=== PATIENT | female | born 1960 | race Caucasian/White ===

== ENCOUNTER 2020-08-12 22:12 | Emergency (ER) | payer OTHER, SELFPAY ==
--- NOTE | ~2020-08-12 | XR_ITS ---
EXAMINATION: XR CHEST CLINICAL INFORMATION: Shortness of breath COMPARISON: 06/02/2019 TECHNIQUE: Frontal view of the chest was obtained. FINDINGS: Cardiac leads overlie the chest. The lungs are well expanded. There is no focal consolidation, edema, or effusion. No pneumothorax. The cardiomediastinal silhouette is within normal limits. No acute osseous abnormality. XR/XR chest 1V IMPRESSION: Clear lungs.
--- NOTE | ~2020-08-12 | CT_ITS ---
EXAMINATION: CT HEAD WITHOUT CONTRAST CLINICAL INFORMATION: Dizziness with headache COMPARISON: 11/27/2016 TECHNIQUE: Contiguous axial imaging was performed from the skull base to vertex without intravenous contrast. This CT examination was performed using dose optimization techniques as appropriate, variously including the following: * Automated exposure control * Adjustment of mA and/or kV according to patient size (this includes techniques or standardized protocols for targeted exams where dose is matched to indication/reason for exam; i.e. extremities or head) Use of iterative reconstruction technique DLP: 1060 mGy-cm. FINDINGS: Motion limits the evaluation. There is no evidence of acute intracranial hemorrhage or territorial infarction. No abnormal mass effect or midline shift is seen. [place] to white matter differentiation is well preserved. No extra-axial fluid collections are identified. No hydrocephalus. Proportional prominence of the ventricles and sulcal spaces is consistent with mild volume loss. Patchy periventricular and deep white matter hypoattenuation is consistent with mild small vessel ischemic changes. The osseous structures and soft tissues are normal. The mastoid air cells and visualized portions of the paranasal sinuses are well aerated. CT/CT head/brain wo con IMPRESSION: No acute intracranial pathology. Volume loss with small vessel ischemic change.
[2020-08-12 22:24] VITALS: BP 175/95; PULSE 85; RESP 12; TEMP 36.6; O2SAT 98; BMI 28.9
--- NOTE | 2020-08-12 22:29 | ED.CHESTPAIN ---
HPI - Chest Pain General Chief Complaint: Chest Pain Stated Complaint: Chest pain Time Seen by Provider: 08/12/20 22:28 Source: patient Mode of arrival: ambulatory Limitations: no limitations History of Present Illness HPI narrative: Patient with history of diabetes asthma hypertension no known coronary artery disease complaining of chest pain for last 2 days off and on feels like pressure lasting for 20-30 minutes without any diaphoresis. Patient also complaining of dizziness since yesterday feel everything is spinning associated with nausea also patient complaining of palpitation episodes off and on. Also complaining of headache feels head is heavy complaint: chest pain Onset (ago): day(s) (2) Timing of current episode: episodic Prior episodes: No Onset: during rest Pain location: left chest Pain radiation: none Severity: mild Quality: heaviness Relieving factors: nothing Exacerbating factors: nothing Context: recent illness Associated symptoms: palpitations Risk Factors Coronary artery disease risk factors: diabetes, hyperlipidemia and hypertension Related Data Previous Rx's Medication Instructions Recorded meclizine 12.5 mg PO TID PRN #20 tab 08/13/20 Allergies Allergy/AdvReac Type Severity Reaction Status Date / Time No Known Allergies Allergy Verified 08/12/20 22:38 [No Known Allergies*] Review of Systems Review of Systems: Constitutional : No Weight loss, No Fever, No Chills ENT/Mouth : No sore throat, No Rhinorrhea Eyes: No Eye Pain, No Swelling Cardiovascular : + Chest Pain, no palpitations Respiratory : No Cough, No Sputum, no shortness of breath Gastrointestinal : no Nausea, No Vomiting, No Diarrhea, No abdominal Pain, no black stools Genitourinary : No Dysuria, No Urinary Frequency Musculoskeletal : No joint pain, No Myalgias, No Joint Swelling Skin : No Skin Lesions, No rash Neuro : No Weakness, No Numbness, + Dizziness, No Headache Psych : No Anxiety/Panic, No Depression Heme/Lymph: No Bruising, No Lymphadenopathy Endocrine : No Polyuria, No Polydipsia All other systems reviewed and are negative [facility] Past Medical History Medical History Asthma Diabetes History of ectopic HTN (hypertension) Hyperchloremia Social History Social History Alcohol intake: never Smoking Status: Never smoker Use of substances other than those prescribed or required for medical reasons: No Advance Directives: No Physical Exam Vital Signs: Vital Signs: Last Vital Signs Temp 97.9 F 08/12/20 22:24 Pulse 79 08/13/20 01:08 Resp 18 08/13/20 01:08 BP 157/85 H 08/13/20 01:08 Pulse Ox 95 08/13/20 00:36 Body Mass Index 28.9 Appearance: Alert. Oriented X3. No acute distress. Eyes: Pupils equal, round and reactive to light. No nystagmus ENT: Pharynx normal. Neck: Normal inspection. Neck supple. CVS: Normal heart rate and rhythm. Pulses normal. Respiratory: No respiratory distress. Breath sounds normal. Abdomen: Soft and nontender. Bowel sounds are present, no mass palpable, no CVA tenderness Skin: Skin warm and dry. Normal skin color. Normal skin turgor. Extremities: No lower extremity edema. No calf tenderness Neuro: Oriented X 3. No motor deficit. No sensory deficit. Course Reevaluation(s) Reevaluation #1: Patient feeling much better now denies any chest pain dizziness has improved after meclizine patient's workup is negative for any acute ischemia patient advised to follow-up with his primary care doctor discharge her home on meclizine Time: 01:23 MDM - Chest Pain MDM Narrative Medical decision making narrative: Patient has atypical chest pain for last 2 days without any acute ischemic changes in the cardiogram history of chronic renal disease with slightly elevated high sensitive troponin at 7.7 which is not very significant patient also complaining of palpitation with chest pain and dizziness during stay in the ER compliance monitor showed normal sinus rhythm no palpitation and dizziness is from BPPV clinically as it gets worse when she moves her head CT scan of the head was negative for any acute Medical Records Data Attestation: I reviewed the patient's medical records. Lab Data Attestation: I reviewed the patient's lab results. Result diagrams: 08/12/20 23:01 08/13/20 00:43 Labs: Lab Results 08/12/20 08/12/20 08/12/20 Range/Units 22:54 23:01 23:01 WBC 7.9 (4.8-10.8) X10*3/uL RBC 4.72 (4.20-5.50) X10*6/uL Hgb 12.0 (12.0-16.0) g/dl Hct 37.8 (37-47) % MCV 80.1 (80-98) fL MCH 25.4 L (27.0-33.0) pg MCHC 31.7 (31.0-35.0) g/dl RDW 16.5 H (11.0-16.0) % Plt Count 237 (160-400) X10*3/uL MPV 11.2 (9.4-12.3) fL Immature Gran % (Auto) 0.1 (0.0-0.4) % Neut % (Auto) 60.2 (45-73) % Lymph % (Auto) 31.2 (20-40) % [place] % (Auto) 7.2 (2-11) % Eos % (Auto) 0.9 (0-4) % Baso % (Auto) 0.4 (0-2) % Lymph # (Auto) 2.5 (1.2-4.9) X10*3/uL [place] # (Auto) 0.6 (0.1-1.2) X10*3/uL Eos # (Auto) 0.1 (0.0-0.4) X10*3/uL Baso # (Auto) 0.0 (0.0-0.2) X10*3/uL Abs Immat Gran (auto) 0.01 (0.00-0.03) X10*3/uL Absolute Neuts (auto) 4.8 (2.0-8.3) X10*3/uL Absolute Nucleated RBC 0.000 (0.0-0.012) X10*3/uL Nucleated RBC % (auto) 0.0 (0.0-0.2) /100WBC PT 13.5 H (10.8-13.0) SEC INR 1.1 (0.9-1.1) Sodium (135-145) mmol/L Potassium (3.3-5.1) mmol/L Chloride (96-108) mmol/L Carbon Dioxide (22-29) mmol/L Anion Gap (12-20) BUN (9-16) mg/dL Creatinine (0.5-1.4) mg/dL Estim Creat Clear Calc Estimated GFR POC Glucose 142 H (60-115) mg/dL Random Glucose (60-115) mg/dL Calcium (8.4-10.2) mg/dL Troponin I High Sens (<3.5-17.0) ng/L B-Natriuretic Peptide (<100) pg/mL COVID-19 (NAWAF) (Negative) COVID-19 Clin Com 08/12/20 08/12/20 08/13/20 Range/Units 23:01 23:02 00:43 WBC (4.8-10.8) X10*3/uL RBC (4.20-5.50) X10*6/uL Hgb (12.0-16.0) g/dl Hct (37-47) % MCV (80-98) fL MCH (27.0-33.0) pg MCHC (31.0-35.0) g/dl RDW (11.0-16.0) % Plt Count (160-400) X10*3/uL MPV (9.4-12.3) fL Immature Gran % (Auto) (0.0-0.4) % Neut % (Auto) (45-73) % Lymph % (Auto) (20-40) % [place] % (Auto) (2-11) % Eos % (Auto) (0-4) % Baso % (Auto) (0-2) % Lymph # (Auto) (1.2-4.9) X10*3/uL [place] # (Auto) (0.1-1.2) X10*3/uL Eos # (Auto) (0.0-0.4) X10*3/uL Baso # (Auto) (0.0-0.2) X10*3/uL Abs Immat Gran (auto) (0.00-0.03) X10*3/uL Absolute Neuts (auto) (2.0-8.3) X10*3/uL Absolute Nucleated RBC (0.0-0.012) X10*3/uL Nucleated RBC % (auto) (0.0-0.2) /100WBC PT (10.8-13.0) SEC INR (0.9-1.1) Sodium 143 (135-145) mmol/L Potassium 3.4 (3.3-5.1) mmol/L Chloride 104 (96-108) mmol/L Carbon Dioxide 30 H (22-29) mmol/L Anion Gap 12 (12-20) BUN 15 (9-16) mg/dL Creatinine 1.21 (0.5-1.4) mg/dL Estim Creat Clear Calc 45.8 Estimated GFR 45 POC Glucose (60-115) mg/dL Random Glucose 145 H (60-115) mg/dL Calcium 9.5 (8.4-10.2) mg/dL Troponin I High Sens 7.7 (<3.5-17.0) ng/L B-Natriuretic Peptide < 10 (<100) pg/mL COVID-19 (NAWAF) Negative (Negative) COVID-19 Clin Com See Note ECG Data ECG #1: Attestation: I personally reviewed and interpreted this ECG as follows: Interpretation: Normal sinus rhythm heart rate 82 beats per minute normal intervals no acute ST T wave changes normal axis impression no acute ischemia Discharge Plan Discharge Clinical Impression: Chest pain Qualifiers: Chest pain type: unspecified Qualified Code(s): R07.9 - Chest pain, unspecified Benign paroxysmal positional vertigo Qualifiers: Laterality: bilateral Qualified Code(s): H81.13 - Benign paroxysmal vertigo, bilateral Patient Disposition: Home, Self-Care Instructions: Chest Pain (ED), Benign Paroxysmal Positional Vertigo (ED) Additional Instructions: Care and cautions as advised Take baby aspirin daily Take meclizine 1 tablet every 8 hours as needed for severe dizziness Follow-up with your PCP Prescriptions: New meclizine 12.5 mg tablet 12.5 mg PO TID PRN (Reason: dizziness) Qty: 20 RF: 0
--- NOTE | 2020-08-12 22:43 | ECG_ITS ---
Test Reason : cp Blood Pressure : / mmHG Vent. Rate : 082 BPM Atrial Rate : 082 BPM P-R Int : 160 ms QRS Dur : 078 ms QT Int : 402 ms P-R-T Axes : 052 023 091 degrees QTc Int : 469 ms Normal sinus rhythm Abnormal QRS-T angle, consider primary T wave abnormality Abnormal ECG No previous ECGs available Referred By: Stevie Leo Electronically Signed By:BOBBY JACKSON MD
[2020-08-12 23:01] LABS: Glucose, Whole Blood 142 mg/dL (60-115)
--- NOTE | 2020-08-12 23:03 | PC.NURSE ---
poc done at [id number]
[2020-08-12 23:08] LABS: MANUAL DIFF FLAG NO
[2020-08-12 23:09] LABS: Basophils Percent Auto 0.4 % (0-2); Eosinophils Absolute Auto 0.1 X10*3/uL (0.0-0.4); Eosinophils Percent Auto 0.9 % (0-4); Hematocrit 37.8 % (37-47); Imm Gran Abs Auto 0.01 X10*3/uL (0.00-0.03); Imm Gran Pct Auto 0.1 % (0.0-0.4); Lymphocytes Absolute Auto 2.5 X10*3/uL (1.2-4.9); Lymphocytes Percent Auto 31.2 % (20-40); Mean Corpuscular HGB Conc 31.7 g/dl (31.0-35.0); Mean Corpuscular Hemoglobin 25.4 pg (27.0-33.0); Mean Corpuscular Volume 80.1 fL (80-98); Mean Platelet Volume 11.2 fL (9.4-12.3); Monocytes Absolute Auto 0.6 X10*3/uL (0.1-1.2); Monocytes Percent Auto 7.2 % (2-11); Neutrophils Absolute Auto 4.8 X10*3/uL (2.0-8.3); Neutrophils Percent Auto 60.2 % (45-73); Platelet Count 237 X10*3/uL (160-400); Red Blood Count 4.72 X10*6/uL (4.20-5.50); Red Cell Distribution Width 16.5 % (11.0-16.0); White Blood Count 7.9 X10*3/uL (4.8-10.8)
[2020-08-12 23:28] LABS: COVID-19 Test Negative (Negative)
[2020-08-12 23:32] LABS: INTERNATIONAL NORM RATIO 1.1 (0.9-1.1); Prothrombin Time 13.5 SEC (10.8-13.0)
[2020-08-12] MEDS: Meclizine HCl 25 MG TABLET PO (23:40)
[2020-08-12 23:46] LABS: B Type Natriuretic Peptide < 10 pg/mL (<100); Troponin-I High Sensitivity 7.7 ng/L (<3.5-17.0)
[2020-08-13 00:36] VITALS: BP 167/97; PULSE 81; RESP 18; O2SAT 95
[2020-08-13 01:08] VITALS: BP 157/85; PULSE 79; RESP 18
[2020-08-13 01:14] LABS: Anion Gap 12 (12-20); Blood Urea Nitrogen 15 mg/dL (9-16); Calcium 9.5 mg/dL (8.4-10.2); Carbon Dioxide 30 mmol/L (22-29); Chloride 104 mmol/L (96-108); Creatinine Clr Calc Pharmacy 45.8; Estimated Glomerular Filt Rate 45; Glucose Random 145 mg/dL (60-115); Potassium 3.4 mmol/L (3.3-5.1); Sodium 143 mmol/L (135-145)
[2020-08-13 02:00] VITALS: BP 162/96; PULSE 89; RESP 18; O2SAT 96
== END 2020-08-13 02:24 | disposition home or self-care (01) ==
PROVIDERS: Emergency Provider Internal Medicine; PCP Internal Medicine
DX: R07.9 Chest pain, unspecified (principal); H81.13 Benign paroxysmal vertigo, bilateral; Z20.822 Contact with and (suspected) exposure to COVID-19; E11.9 Type 2 diabetes mellitus without complications; I10 Essential (primary) hypertension; E78.5 Hyperlipidemia, unspecified; J45.909 Unspecified asthma, uncomplicated; I25.10 Atherosclerotic heart disease of native coronary artery without angina pectoris
CPT/HCPCS: 36415; 70450; 71045; 80048; 82947; 83880; 84484; 85025; 85610; 87086; 87635; 93005; 99284

== ENCOUNTER 2020-08-16 05:54 | Emergency (ER) | payer OTHER, SELFPAY ==
--- NOTE | ~2020-08-16 | CT_ITS ---
EXAMINATION: CT HEAD WITHOUT CONTRAST CLINICAL INFORMATION: Headache COMPARISON: CT brain 08/12/2020 TECHNIQUE: Contiguous axial imaging was performed from the skull base to vertex without intravenous administration of contrast. This CT examination was performed using dose optimization techniques as appropriate, variously including the following: *Automated exposure control *Adjustment of mA and/or kV according to patient size (this includes techniques or standardized protocols for targeted exams where dose is matched to indication/reason for exam; i.e. extremities or head) *Use of iterative reconstruction technique DLP: 639 mGy-cm FINDINGS: There is no evidence of acute intracranial hemorrhage or territorial infarction. No abnormal mass effect or midline shift is seen. Gal[place] to white matter differentiation is well preserved. No extra-axial fluid collections are identified. The lateral ventricles are symmetrical but enlarged mild periarticular hypodensity seen in both cerebral hemispheres without mass effect. There is no abnormal attenuation within the brain parenchyma. The osseous structures and soft tissues are normal. The mastoid air cells and visualized portions of the paranasal sinuses are well aerated. CT/CT head/brain wo con IMPRESSION: No acute intracranial process seen. Moderate cerebral volume loss with chronic small vessel ischemic changes in both cerebral hemispheres.
[2020-08-16 07:15] VITALS: BP 145/88; PULSE 78; RESP 18; TEMP 36.3; O2SAT 98; BMI 27.4
--- NOTE | 2020-08-16 07:16 | ECG_ITS ---
Test Reason : HEADACHE Blood Pressure : / mmHG Vent. Rate : 069 BPM Atrial Rate : 069 BPM P-R Int : 152 ms QRS Dur : 076 ms QT Int : 420 ms P-R-T Axes : 058 048 080 degrees QTc Int : 450 ms Normal sinus rhythm Nonspecific ST and T wave abnormality in lateral leads Borderline EKG When compared with ECG of 12-AUG-2020 22:34, No significant change was found Referred By: Lakeisha Hankins Electronically Signed By:PRUDENCE FAROOQ
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
[2020-08-16 07:29] VITALS: BP 132/55; PULSE 72
[2020-08-16] MEDS: LORazepam 1 MG TABLET PO (07:29)
[2020-08-16 09:02] VITALS: BP 111/63; PULSE 76; RESP 16
[2020-08-16 09:27] LABS: MANUAL DIFF FLAG NO
[2020-08-16 09:29] LABS: Basophils Percent Auto 0.5 % (0-2); Eosinophils Absolute Auto 0.1 X10*3/uL (0.0-0.4); Eosinophils Percent Auto 1.2 % (0-4); Hematocrit 34.8 % (37-47); Hemoglobin 10.8 g/dl (12.0-16.0); Imm Gran Abs Auto 0.02 X10*3/uL (0.00-0.03); Imm Gran Pct Auto 0.3 % (0.0-0.4); Lymphocytes Absolute Auto 1.9 X10*3/uL (1.2-4.9); Lymphocytes Percent Auto 32.4 % (20-40); Mean Corpuscular Hemoglobin 25.2 pg (27.0-33.0); Mean Corpuscular Volume 81.1 fL (80-98); Monocytes Absolute Auto 0.5 X10*3/uL (0.1-1.2); Monocytes Percent Auto 7.8 % (2-11); Neutrophils Absolute Auto 3.3 X10*3/uL (2.0-8.3); Neutrophils Percent Auto 57.8 % (45-73); Platelet Count 186 X10*3/uL (160-400); Red Blood Count 4.29 X10*6/uL (4.20-5.50); Red Cell Distribution Width 16.2 % (11.0-16.0); White Blood Count 5.8 X10*3/uL (4.8-10.8)
[2020-08-16 09:40] VITALS: BP 102/56; PULSE 72
[2020-08-16 10:02] LABS: Anion Gap 11 (12-20); Blood Urea Nitrogen 15 mg/dL (9-16); Calcium 8.7 mg/dL (8.4-10.2); Carbon Dioxide 28 mmol/L (22-29); Chloride 104 mmol/L (96-108); Creatinine Clr Calc Pharmacy 39.7; Estimated Glomerular Filt Rate 40; Glucose Random 237 mg/dL (60-115); Potassium 4.1 mmol/L (3.3-5.1); Sodium 139 mmol/L (135-145)
== END 2020-08-16 11:33 | disposition home or self-care (01) ==
PROVIDERS: Emergency Provider Emergency Medicine; PCP Internal Medicine
DX: G44.209 Tension-type headache, unspecified, not intractable (principal); F41.9 Anxiety disorder, unspecified; E11.9 Type 2 diabetes mellitus without complications; I10 Essential (primary) hypertension; J45.909 Unspecified asthma, uncomplicated
CPT/HCPCS: 36415; 70450; 80048; 85025; 93005; 99284

== ENCOUNTER 2021-11-30 13:55 | Outpatient (REF) | payer MEDICARE, MEDICAID, SELFPAY ==
[2021-11-30 14:21] LABS: COVID-19 Test Positive (Negative)
== END 2021-11-30 13:56 | disposition home or self-care (01) ==
LOC: HO.LAB 13:55
PROVIDERS: Visit Provider Internal Medicine
DX: Z20.822 Contact with and (suspected) exposure to COVID-19 (principal)
CPT/HCPCS: 87635; C9803

== ENCOUNTER 2023-09-20 12:34 | Emergency (ER) | payer MEDICARE, SELFPAY ==
--- NOTE | ~2023-09-20 | CT_ITS ---
EXAMINATION: CT HEAD WITHOUT CONTRAST CLINICAL INFORMATION: Mental status change COMPARISON: CT head August 16, 2020 TECHNIQUE: Contiguous axial imaging was performed from the skull base to vertex without intravenous administration of contrast. Coronal and sagittal reformatted images are performed at the CT scanner. [This CT examination was performed using dose optimization techniques as appropriate, variously including the following: *Automated exposure control *Adjustment of mA and/or kV according to patient size (this includes techniques or standardized protocols for targeted exams where dose is matched to indication/reason for exam; i.e. extremities or head) *Use of iterative reconstruction technique] DLP: 609 mGy-cm. FINDINGS: There is no evidence of acute intracranial hemorrhage or territorial infarction. No abnormal mass-effect or midline shift is seen. [place] to white matter differentiation is well preserved. No extra-axial fluid collections are identified. There is generalized global volume loss. There is moderate prominence of the ventricles and the sulci . There is moderate hypodensity of the periventricular white matter due to chronic small vessel ischemic disease. There are vascular calcifications of the internal carotid arteries bilaterally. There is no osseous abnormality. The mastoid air cells and visualized portions of the paranasal sinuses are well-aerated. CT/CT head/brain wo IV con IMPRESSION: No acute intracranial pathology.
[2023-09-20 12:50] VITALS: PULSE 90; RESP 18; TEMP 36.3; O2SAT 99; BMI 27.4
--- NOTE | 2023-09-20 12:50 | ED_ITS ---
HPI - General Adult General Chief complaint: General Medical Stated complaint: high bs Time Seen by Provider: 09/20/23 15:13 Source: patient, family and old records reviewed Mode of arrival: ambulatory Limitations: no limitations History of Present Illness HPI narrative: 63 yo female with PMH of HLD, HTN, asthma, IDDM, recent [address] s/p hydrocephalus with drainage per and seizures now on diamox 250mg daily and keppra 500mg BID. Has been taking insulin as prescribed. She is better than she has been in [place] but family notes they brought her here 4 days ago and she has no PCP and they have no way of filling Rx. They were worried as her blood sugar was 471 today. MD complaint: hyperglycemia Onset (ago): day(s) (1) Severity: mild Relieving factors: none Exacerbating factors: none Associated symptoms: nausea/vomiting Treatments prior to arrival: none Related Data Previous Rx's ?Medication ?Instructions ?Recorded meclizine 12.5 mg tablet 12.5 mg PO TID PRN dizziness #20 08/13/20 tabs lorazepam 1 mg tablet (Ativan) 1 mg PO BEDTIME PRN sleep #5 tabs 08/16/20 acetazolamide 250 mg tablet 250 mg PO DAILY #30 tabs 09/20/23 atorvastatin 40 mg tablet 40 mg PO DAILY #30 tabs 09/20/23 cefuroxime axetil 250 mg tablet 250 mg PO BID 7 days #14 tabs 09/20/23 docusate sodium 100 mg capsule 100 mg PO BID PRN constipation #60 09/20/23 (Colace) caps insulin glargine 100 unit/mL (3 35 unit (0.35 mL) subcut QPM #15 mL 09/20/23 mL) subcutaneous pen (Lantus Solostar U-100 Insulin) insulin lispro 100 unit/mL 8 unit (0.08 mL) subcut QAM #15 mL 09/20/23 subcutaneous pen levetiracetam 500 mg tablet 500 mg PO BID #60 tabs 09/20/23 (Keppra) Allergies Allergy/AdvReac Type Severity Reaction Status Date / Time No Known Allergies Allergy Verified 09/20/23 12:52 [No Known Allergies*] Review of Systems 2 Review of Systems: Constitutional : No Fever, No Chills, No Fatigue ENT/Mouth : No sore throat, No Rhinorrhea Eyes: No Eye Pain, No Swelling, No Redness Cardiovascular : No Chest Pain, No SOB, No Dyspnea on Exertion Respiratory : No Cough, No Sputum Gastrointestinal : pos Nausea, No Vomiting, No Diarrhea, No abdominal Pain Genitourinary : No Dysuria, No Urinary Frequency, No Hematuria, Musculoskeletal : No joint pain, No Myalgias, No Joint Swelling Skin : No Skin Lesions, No rash Neuro : No Weakness, No Numbness, No Dizziness, no Headache Psych : No Anxiety/Panic, No Depression All other systems reviewed and are negative [facility] Past Medical History Attestation statement: The following information was validated with the patient. Source: old records reviewed and obtained from family Medical History Hydrocephalus Seizures History of ectopic Diabetes Hyperchloremia HTN (hypertension) Asthma Social History Social History (Updated 09/20/23 @ 15:33 by Shala Hankins DO) Alcohol intake: never Patient Tobacco Use Status: Never used Tobacco Smoked in Last 30 Days: No Use of substances other than those prescribed or required for medical reasons: No Advance Directives: No Advance Directives Information Provided: No Patient : No Physical Exam ED Vital Signs: Vital Signs - 24 hr 09/20/23 12:50 09/20/23 17:43 Temperature 97.3 F 98.1 F Pulse Rate 90 101 H Respiratory Rate 18 18 Blood Pressure 121/74 Pulse Oximetry 99 99 Oxygen Delivery Method Room Air Room Air BMI result Body Mass Index 27.4 Appearance: Alert. Oriented X2 (at baseline). No acute distress. Eyes: Pupils equal, round and reactive to light. ENT: Pharynx normal. Neck: Normal inspection. Neck supple. CVS: Normal heart rate and rhythm. Pulses normal. Respiratory: No respiratory distress. Breath sounds normal. Abdomen: Soft and nontender. Skin: Skin warm and dry. Normal skin color. Normal skin turgor. Extremities: No lower extremity edema. No calf ttp Neuro: Oriented X 2 (at baseline). No motor deficit. No sensory deficit. Course Course Course Narrative: RME:?63 yo female hx of diabetes, asthma, HTN here for eval of hyperglycemia. Admits BS was 500 at clinic this morning. states she came home from [place] 2 days ago after having to leave early due to thyroid issues . she currently takes medications for her thyroid, HTN, and DM however cannot recall the names. she states she takes these as prescribed. admits to nausea without vomiting. denies fever, chills, vision changes, abd pain. labs, poc glucose, UA ordered. Full HPI, ROS and PE to be performed by the primary ED provider. Reevaluation(s) Reevaluation #1: blood sugar trending up due to patient was drinking juice while walking into the ED Medications Administered Discontinued Medications Generic Name Dose Route Start Last Admin Trade Name [place] PRN Reason Stop Dose Admin Insulin Human Lispro 5 unit 09/20/23 15:25 09/20/23 16:15 Insulin Lispro 100 Unit/Ml 3 Ml Vial SUBCUT 09/20/23 15:26 5 unit ONCE ONE Administration Medical Decision Making Medical Decision Making [facility] Narrative: 63 yo female with PMH of HLD, HTN, asthma, IDDM, recent [address] s/p hydrocephalus with drainage per and seizures now on diamox 250mg daily and keppra 500mg BID here with elevated BS and now with c/o mild nausea but other than elevated BS she denies any complaints. The history is hard to follow at this time will obtain labs, UA, suspect VBG is due to diamox use - will obtain CT head to rule out hydrocephalus reaacumulating given nausea. EKG, insulin ordered. Differential Diagnosis Differential Diagnoses: The differential diagnosis associated with the presentation includes hyperglycemia, hydrocephalus Admission/Observation Consideration of admission/observation: Escalation of care including admission/observation considered + UA but no signs of sepsis start on ceftin. at baseline other than elevated blood sugar there is no acute findings can be DC home did ask if feels comfortable taking her home and he states he does and declines rehab or placement Lab Data [facility] Lab Attestation statement: I reviewed the patient's lab results. not in DKA suspect ph is due to diamox no gennaro neg beta hydroxy 09/20/23 13:06 09/20/23 13:06 Labs: Lab Results 09/20/23 09/20/23 09/20/23 Range/Units 13:06 13:08 13:44 WBC 6.2 (4.8-10.8) X10*3/uL RBC 4.66 (4.20-5.50) X10*6/uL Hgb 12.9 (12.0-16.0) g/dl Hct 39.1 (37.0-47.0) % MCV 83.9 (80.0-98.0) fL MCH 27.7 (27.0-33.0) pg MCHC 33.0 (31.0-35.0) g/dl RDW 14.8 (11.0-16.0) % Plt Count 283 (160-400) X10*3/uL MPV 10.9 (9.4-12.3) fL Immature Gran % (Auto) 0.5 H (0.0-0.4) % Neut % (Auto) 64.4 (45-73) % Lymph % (Auto) 25.1 (20-40) % [place] % (Auto) 7.1 (2-11) % Eos % (Auto) 2.3 (0-4) % Baso % (Auto) 0.6 (0-2) % Lymph # (Auto) 1.6 (1.2-4.9) X10*3/uL [place] # (Auto) 0.4 (0.1-1.2) X10*3/uL Eos # (Auto) 0.1 (0.0-0.4) X10*3/uL Baso # (Auto) 0.0 (0.0-0.2) X10*3/uL Abs Immat Gran (auto) 0.03 (0.00-0.03) X10*3/uL Absolute Neuts (auto) 4.0 (2.0-8.3) x10*3/uL Absolute Nucleated RBC 0.000 (0.0-0.012) X10*3/uL Nucleated RBC % (auto) 0.0 (0.0-0.2) /100WBC VBG pH (7.32-7.43) VBG pCO2 mmHg VBG pO2 mmHg VBG HCO3 (22-26) mmol/L VBG O2 Saturation % VBG Base Excess mmol/L Sodium 139 (135-145) mmol/L Potassium 3.4 (3.3-5.1) mmol/L Chloride 111 H (96-108) mmol/L Carbon Dioxide 23 (22-29) mmol/L Anion Gap 8 L (12-20) BUN 23 H (9-16) mg/dL Creatinine 1.33 (0.5-1.4) mg/dL Estim Creat Clear Calc 39.1 Estimated GFR 40 POC Glucose 321 H (60-115) mg/dL Random Glucose 376 H* (60-115) mg/dL Osmolality (281-305) mosm/kg Calcium 9.8 D (8.4-10.2) mg/dL Magnesium 2.1 (1.6-2.6) mg/dL Total Bilirubin 0.3 (0.0-1.0) mg/dL AST 13 (5-31) U/L ALT 25 (0-31) U/L Alkaline Phosphatase 126 H (39-117) U/L Total Protein 7.8 (6.5-8.0) g/dL Albumin 4.3 (3.5-5.0) g/dL Lipase 88 H (8-78) U/L Beta-Hydroxybutyrate 0.00 L (0.02-0.27) mmol/L TSH (0.32-4.0) uIU/mL Urine Color Urine Appearance Urine pH (5.0-9.0) Ur Specific [place] (1.005-1.025) Urine Protein (Neg-Trace) mg/dL Urine Glucose (UA) (Negative) mg/dL Urine Ketones (Negative) mg/dL Urine Blood (Negative) Urine Nitrite (Negative) Ur Leukocyte Esterase (Negative) Urine RBC (0-2) /HPF Urine WBC (0-5) /HPF Ur Squamous Epith Cells (0-2) /HPF Urine Bacteria (None Seen) Hyaline Casts (0-2) /LPF Influenza Type A (PCR) NEGATIVE (Negative) Influenza Type B (PCR) NEGATIVE (Negative) RSV RNA Qual (PCR) NEGATIVE (Negative) SARS-CoV-2 RNA (RT-PCR) NEGATIVE (Negative) 09/20/23 09/20/23 09/20/23 Range/Units 14:55 15:46 15:47 WBC (4.8-10.8) X10*3/uL RBC (4.20-5.50) X10*6/uL Hgb (12.0-16.0) g/dl Hct (37.0-47.0) % MCV (80.0-98.0) fL MCH (27.0-33.0) pg MCHC (31.0-35.0) g/dl RDW (11.0-16.0) % Plt Count (160-400) X10*3/uL MPV (9.4-12.3) fL Immature Gran % (Auto) (0.0-0.4) % Neut % (Auto) (45-73) % Lymph % (Auto) (20-40) % [place] % (Auto) (2-11) % Eos % (Auto) (0-4) % Baso % (Auto) (0-2) % Lymph # (Auto) (1.2-4.9) X10*3/uL [place] # (Auto) (0.1-1.2) X10*3/uL Eos # (Auto) (0.0-0.4) X10*3/uL Baso # (Auto) (0.0-0.2) X10*3/uL Abs Immat Gran (auto) (0.00-0.03) X10*3/uL Absolute Neuts (auto) (2.0-8.3) x10*3/uL Absolute Nucleated RBC (0.0-0.012) X10*3/uL Nucleated RBC % (auto) (0.0-0.2) /100WBC VBG pH 7.28 L 7.29 L (7.32-7.43) VBG pCO2 42 40 mmHg VBG pO2 37 45 mmHg VBG HCO3 20 L 19 L (22-26) mmol/L VBG O2 Saturation 59.0 73.0 % VBG Base Excess -6.1 -6.3 mmol/L Sodium (135-145) mmol/L Potassium (3.3-5.1) mmol/L Chloride (96-108) mmol/L Carbon Dioxide (22-29) mmol/L Anion Gap (12-20) BUN (9-16) mg/dL Creatinine (0.5-1.4) mg/dL Estim Creat Clear Calc Estimated GFR POC Glucose (60-115) mg/dL Random Glucose (60-115) mg/dL Osmolality 318 H (281-305) mosm/kg Calcium (8.4-10.2) mg/dL Magnesium (1.6-2.6) mg/dL Total Bilirubin (0.0-1.0) mg/dL AST (5-31) U/L ALT (0-31) U/L Alkaline Phosphatase (39-117) U/L Total Protein (6.5-8.0) g/dL Albumin (3.5-5.0) g/dL Lipase (8-78) U/L Beta-Hydroxybutyrate (0.02-0.27) mmol/L TSH 0.85 (0.32-4.0) uIU/mL Urine Color Urine Appearance Urine pH (5.0-9.0) Ur Specific [place] (1.005-1.025) Urine Protein (Neg-Trace) mg/dL Urine Glucose (UA) (Negative) mg/dL Urine Ketones (Negative) mg/dL Urine Blood (Negative) Urine Nitrite (Negative) Ur Leukocyte Esterase (Negative) Urine RBC (0-2) /HPF Urine WBC (0-5) /HPF Ur Squamous Epith Cells (0-2) /HPF Urine Bacteria (None Seen) Hyaline Casts (0-2) /LPF Influenza Type A (PCR) (Negative) Influenza Type B (PCR) (Negative) RSV RNA Qual (PCR) (Negative) SARS-CoV-2 RNA (RT-PCR) (Negative) 09/20/23 09/20/23 09/20/23 Range/Units 17:19 17:37 17:52 WBC (4.8-10.8) X10*3/uL RBC (4.20-5.50) X10*6/uL Hgb (12.0-16.0) g/dl Hct (37.0-47.0) % MCV (80.0-98.0) fL MCH (27.0-33.0) pg MCHC (31.0-35.0) g/dl RDW (11.0-16.0) % Plt Count (160-400) X10*3/uL MPV (9.4-12.3) fL Immature Gran % (Auto) (0.0-0.4) % Neut % (Auto) (45-73) % Lymph % (Auto) (20-40) % [place] % (Auto) (2-11) % Eos % (Auto) (0-4) % Baso % (Auto) (0-2) % Lymph # (Auto) (1.2-4.9) X10*3/uL [place] # (Auto) (0.1-1.2) X10*3/uL Eos # (Auto) (0.0-0.4) X10*3/uL Baso # (Auto) (0.0-0.2) X10*3/uL Abs Immat Gran (auto) (0.00-0.03) X10*3/uL Absolute Neuts (auto) (2.0-8.3) x10*3/uL Absolute Nucleated RBC (0.0-0.012) X10*3/uL Nucleated RBC % (auto) (0.0-0.2) /100WBC VBG pH (7.32-7.43) VBG pCO2 mmHg VBG pO2 mmHg VBG HCO3 (22-26) mmol/L VBG O2 Saturation % VBG Base Excess mmol/L Sodium (135-145) mmol/L Potassium (3.3-5.1) mmol/L Chloride (96-108) mmol/L Carbon Dioxide (22-29) mmol/L Anion Gap (12-20) BUN (9-16) mg/dL Creatinine (0.5-1.4) mg/dL Estim Creat Clear Calc Estimated GFR POC Glucose 469 H* 451 H* (60-115) mg/dL Random Glucose (60-115) mg/dL Osmolality (281-305) mosm/kg Calcium (8.4-10.2) mg/dL Magnesium (1.6-2.6) mg/dL Total Bilirubin (0.0-1.0) mg/dL AST (5-31) U/L ALT (0-31) U/L Alkaline Phosphatase (39-117) U/L Total Protein (6.5-8.0) g/dL Albumin (3.5-5.0) g/dL Lipase (8-78) U/L Beta-Hydroxybutyrate (0.02-0.27) mmol/L TSH (0.32-4.0) uIU/mL Urine Color Yellow Urine Appearance Cloudy Urine pH 7.0 (5.0-9.0) Ur Specific [place] 1.020 (1.005-1.025) Urine Protein 30 (1+) H (Neg-Trace) mg/dL Urine Glucose (UA) >=1000 H (Negative) mg/dL Urine Ketones Negative (Negative) mg/dL Urine Blood Negative (Negative) Urine Nitrite Negative (Negative) Ur Leukocyte Esterase Small (1+) H (Negative) Urine RBC 0-2 (0-2) /HPF Urine WBC >50 H (0-5) /HPF Ur Squamous Epith Cells 0-2 (0-2) /HPF Urine Bacteria 4+ (None Seen) Hyaline Casts 0-2 (0-2) /LPF Influenza Type A (PCR) (Negative) Influenza Type B (PCR) (Negative) RSV RNA Qual (PCR) (Negative) SARS-CoV-2 RNA (RT-PCR) (Negative) Independent Interpretation I performed an independent interpretation of an: EKG and CT Scan (no acute findings) Interpretation: Rate: 93 Rhythm: NSR [place]: normal Normal P waves. Normal CRISTOPHER. Normal QRS complex. ST T wave : normal no MIKAEL qTC: 460 prior studies: no acute ischemia The study has been interpreted contemporaneously by me. . Radiology Impression Discussion of test interpretation with radiology: I have reviewed the radiologist's reading. Independent Historian Clinical information obtained from an independent historian. History obtained from or confirmed by: Spouse External Record Review External record reviewed: Outpatient record Prescription Management I considered prescription management with: Antibiotic and Other Discharge Plan Discharge Clinical Impression: Acute hyperglycemia, Acute UTI, Medicine refill Patient Disposition: Home, Self-Care Instructions: Urinary Tract Infection in Women (ED), Diabetic Hyperglycemia (ED), Medicine Refill (ED) Additional Instructions: [facility] call to make appointment [phone] return for any worsening symptoms or concerns Prescriptions: New levetiracetam [Keppra] 500 mg tablet 500 mg PO BID Qty: 60 1RF acetazolamide 250 mg tablet 250 mg PO DAILY Qty: 30 0RF atorvastatin 40 mg tablet 40 mg PO DAILY Qty: 30 1RF docusate sodium [Colace] 100 mg capsule 100 mg PO BID PRN (Reason: constipation) Qty: 60 1RF insulin glargine [Lantus Solostar U-100 Insulin] 100 unit/mL (3 mL) insulin pen 35 unit subcut QPM Qty: 15 1RF insulin lispro 100 unit/mL insulin pen 8 unit subcut QAM Qty: 15 1RF cefuroxime axetil 250 mg tablet 250 mg PO BID 7 Days Qty: 14 0RF No Action meclizine 12.5 mg tablet 12.5 mg PO TID PRN (Reason: dizziness) Qty: 20 0RF lorazepam [Ativan] 1 mg tablet 1 mg PO BEDTIME PRN (Reason: sleep) Qty: 5 0RF Print Language: Tristanian
[2023-09-20 13:11] LABS: Glucose, Whole Blood 321 mg/dL (60-115)
[2023-09-20 13:17] LABS: MANUAL DIFF FLAG NO
[2023-09-20 13:18] LABS: Basophils Percent Auto 0.6 % (0-2); Eosinophils Absolute Auto 0.1 X10*3/uL (0.0-0.4); Eosinophils Percent Auto 2.3 % (0-4); Hematocrit 39.1 % (37.0-47.0); Hemoglobin 12.9 g/dl (12.0-16.0); Imm Gran Abs Auto 0.03 X10*3/uL (0.00-0.03); Imm Gran Pct Auto 0.5 % (0.0-0.4); Lymphocytes Absolute Auto 1.6 X10*3/uL (1.2-4.9); Lymphocytes Percent Auto 25.1 % (20-40); Mean Corpuscular Hemoglobin 27.7 pg (27.0-33.0); Mean Corpuscular Volume 83.9 fL (80.0-98.0); Mean Platelet Volume 10.9 fL (9.4-12.3); Monocytes Absolute Auto 0.4 X10*3/uL (0.1-1.2); Monocytes Percent Auto 7.1 % (2-11); Neutrophils Percent Auto 64.4 % (45-73); Platelet Count 283 X10*3/uL (160-400); Red Blood Count 4.66 X10*6/uL (4.20-5.50); Red Cell Distribution Width 14.8 % (11.0-16.0); White Blood Count 6.2 X10*3/uL (4.8-10.8)
[2023-09-20 13:37] LABS: Alanine Aminotransferase 25 U/L (0-31); Albumin Level 4.3 g/dL (3.5-5.0); Alkaline Phosphatase 126 U/L (39-117); Anion Gap 8 (12-20); Aspartate Amino Transferase 13 U/L (5-31); Bilirubin Total 0.3 mg/dL (0.0-1.0); Blood Urea Nitrogen 23 mg/dL (9-16); Calcium 9.8 mg/dL (8.4-10.2); Carbon Dioxide 23 mmol/L (22-29); Chloride 111 mmol/L (96-108); Creatinine Clr Calc Pharmacy 39.1; Estimated Glomerular Filt Rate 40; Lipase 88 U/L (8-78); Magnesium 2.1 mg/dL (1.6-2.6); Potassium 3.4 mmol/L (3.3-5.1); Sodium 139 mmol/L (135-145); Total Protein 7.8 g/dL (6.5-8.0)
[2023-09-20 13:38] LABS: Glucose Random 376 mg/dL (60-115)
[2023-09-20 14:25] LABS: Influenza A PCR NEGATIVE (Negative); Influenza B PCR NEGATIVE (Negative); Resp Syncy Virus RNA Qual PCR NEGATIVE (Negative); SARS COV2 PCR INHOUSE NEGATIVE (Negative)
[2023-09-20 15:02] LABS: Venous Blood Gas Refer to POC result
[2023-09-20 15:04] LABS: VBG Base Excess -6.1 mmol/L; VBG HCO3 20 mmol/L (22-26); VBG pCO2 42 mmHg; VBG pH 7.28 (7.32-7.43); VBG pO2 37 mmHg
--- NOTE | 2023-09-20 15:15 | PC.NURSE ---
While bringing patient back to the department- pt was drinking orange juice- instructed patient not to eat/drink
[2023-09-20 15:19] LABS: Osmolality, Serum 318 mosm/kg (281-305)
--- NOTE | 2023-09-20 15:38 | ECG_ITS ---
Test Reason : weakness Blood Pressure : / mmHG Vent. Rate : 093 BPM Atrial Rate : 093 BPM P-R Int : 164 ms QRS Dur : 080 ms QT Int : 370 ms P-R-T Axes : 052 027 059 degrees QTc Int : 460 ms Normal sinus rhythm Normal ECG When compared with ECG of 16-AUG-2020 09:00, No significant change was found Referred By: Shala Hankins Electronically Signed By:BOBBY JACKSON MD
[2023-09-20 15:55] LABS: VBG Base Excess -6.3 mmol/L; VBG HCO3 19 mmol/L (22-26); VBG pCO2 40 mmHg; VBG pH 7.29 (7.32-7.43); VBG pO2 45 mmHg
[2023-09-20 15:56] LABS: Venous Blood Gas Refer to POC result
[2023-09-20] MEDS: Insulin Lispro 100 UNIT/ML 3 ML VIAL SUBCUT (16:15)
[2023-09-20 16:27] LABS: TSH reflex Free T4 0.85 uIU/mL (0.32-4.0)
[2023-09-20 17:30] LABS: Appearance Urine Cloudy; Color Urine Yellow; Glucose Urine UA >=1000 mg/dL (Negative); Leukocyte Esterase Urine Small (1+) (Negative); Nitrite Urine Negative (Negative); UMIC TRIGGER UACC YES; Urine Blood Negative (Negative); Urine Ketones Negative (Negative); Urine Protein 30 (1+) mg/dL (Neg-Trace)
[2023-09-20 17:32] LABS: Bacteria Urine 4+ (None Seen); Hyaline Casts Urine 0-2 /LPF (0-2); RBC Urine 0-2 /HPF (0-2); Squamous Epithelial Cell Urine 0-2 /HPF (0-2); UACC Culture Trigger YES; WBC Urine >50 /HPF (0-5)
[2023-09-20 17:43] VITALS: BP 121/74; PULSE 101; RESP 18; TEMP 36.7; O2SAT 99
[2023-09-20 17:44] LABS: Glucose, Whole Blood 469 mg/dL (60-115)
[2023-09-20 17:56] LABS: Glucose, Whole Blood 451 mg/dL (60-115)
[2023-09-20] MEDS: Insulin Lispro 100 UNIT/ML 3 ML VIAL 8 UNIT SUBCUT (18:17)
[2023-09-20] MEDS: cefuroxime axetiL 250 MG TABLET PO (18:17)
[2023-09-20 19:07] LABS: Glucose, Whole Blood 395 mg/dL (60-115)
[2023-09-20 19:28] VITALS: BP 132/89; PULSE 99; RESP 17; TEMP 36.7; O2SAT 100
== END 2023-09-20 19:30 | disposition home or self-care (01) ==
PROVIDERS: Physician Assistant Medical; Emergency Provider Emergency Medicine
DX: E11.65 Type 2 diabetes mellitus with hyperglycemia (principal); N39.0 Urinary tract infection, site not specified; R11.2 Nausea with vomiting, unspecified; R41.82 Altered mental status, unspecified; Z03.818 Encounter for observation for suspected exposure to other biological agents ruled out; Z79.4 Long term (current) use of insulin; Z79.899 Other long term (current) drug therapy
CPT/HCPCS: 0241U; 36415; 70450; 80053; 81001; 82010; 82803; 82947; 83690; 83735; 83930; 84443; 85025; 87086; 93005; 99284

== ENCOUNTER → 2023-09-20 15:38 | Outpatient (BNV) | payer MEDICARE, SELFPAY | PROVIDERS: Emergency Provider Emergency Medicine; Visit Provider Internal Medicine Cardiovascular Disease | DX: R53.1 Weakness (principal) | CPT/HCPCS: 93010 ==

== ENCOUNTER 2023-09-21 18:49 | Emergency (ER) | payer MEDICARE, MEDICAID, SELFPAY ==
--- NOTE | 2023-09-21 18:56 | ED.GENADULT ---
HPI - General Adult General Chief complaint: Recheck/Abnormal Lab/Rx Stated complaint: hyperglycemia *BGL 472 ,hx diabetes Time Seen by Provider: 09/21/23 18:51 Source: patient, family, EMS and old records reviewed Mode of arrival: EMS Limitations: altered mental status (poor historian mildly confused at baseline) History of Present Illness HPI narrative: 63 yo female with PMH of HLD, HTN, asthma, IDDM, recent [address] s/p hydrocephalus with drainage per and seizures now on diamox 250mg daily and keppra 500mg BID who I saw yesterday and prescribed 8 units of lispro as asked and on Rx package confirmed by marketing research intern as well as 35 units lantus confirmed by marketing research intern. Family calls EMS again today after BS in 400s and they note her lispro is not right. Patient has no complaints. She was sent home with 250mg BID ceftin for UTI MD complaint: hyperglycemia Onset (ago): day(s) (2) Radiation: non-radiation Severity: mild Relieving factors: none Exacerbating factors: eating Associated symptoms: denies other symptoms Treatments prior to arrival: none Related Data Previous Rx's ?Medication ?Instructions ?Recorded meclizine 12.5 mg tablet 12.5 mg PO TID PRN dizziness #20 08/13/20 tabs lorazepam 1 mg tablet (Ativan) 1 mg PO BEDTIME PRN sleep #5 tabs 08/16/20 acetazolamide 250 mg tablet 250 mg PO DAILY #30 tabs 09/20/23 atorvastatin 40 mg tablet 40 mg PO DAILY #30 tabs 09/20/23 cefuroxime axetil 250 mg tablet 250 mg PO BID 7 days #14 tabs 09/20/23 docusate sodium 100 mg capsule 100 mg PO BID PRN constipation #60 09/20/23 (Colace) caps insulin glargine 100 unit/mL (3 35 unit (0.35 mL) subcut QPM #15 mL 09/20/23 mL) subcutaneous pen (Lantus Solostar U-100 Insulin) insulin lispro 100 unit/mL 8 unit (0.08 mL) subcut QAM #15 mL 09/20/23 subcutaneous pen levetiracetam 500 mg tablet 500 mg PO BID #60 tabs 09/20/23 (Keppra) Allergies Allergy/AdvReac Type Severity Reaction Status Date / Time No Known Allergies Allergy Verified 09/21/23 18:59 [No Known Allergies*] Review of Systems Review of Systems: ROS unable to be obtained due to poor historian PMFSH Past Medical History Attestation statement: The following information was validated with the patient. Source: old records reviewed Medical History Hydrocephalus Seizures History of ectopic Diabetes Hyperchloremia HTN (hypertension) Asthma Social History Social History Alcohol intake: never Patient Tobacco Use Status: Never used Tobacco Advance Directives: No Advance Directives Information Provided: No Physical Exam ED Vital Signs: Vital Signs - 24 hr 09/21/23 18:57 Temperature 98.2 F Pulse Rate 92 Respiratory Rate 16 Blood Pressure 124/82 Pulse Oximetry 95 Oxygen Delivery Method Room Air BMI result Body Mass Index 25.8 Appearance: Alert. Oriented X2. No acute distress. Eyes: Pupils equal, round and reactive to light. ENT: Pharynx normal. Neck: Normal inspection. Neck supple. CVS: Normal heart rate and rhythm. Pulses normal. Respiratory: No respiratory distress. Breath sounds normal. Abdomen: Soft and nontender. Skin: Skin warm and dry. Normal skin color. Normal skin turgor. Extremities: No lower extremity edema. No calf ttp Neuro: Oriented X 2. No motor deficit. No sensory deficit. Medications Administered Discontinued Medications Generic Name Dose Route Start Last Admin Trade Name Freq PRN Reason Stop Dose Admin Sodium Chloride 1,000 mls @ 999 mls/hr 09/21/23 20:00 09/21/23 20:10 Ns IV 09/21/23 21:00 999 mls/hr .Q1H1M [facility] Administration Insulin Human Regular 7 unit 09/21/23 18:51 09/21/23 19:10 Insulin Regular, Human 100 Unit/Ml 3 Ml Vial IVPUSH 09/21/23 18:52 7 unit ONCE ONE Administration Medical Decision Making Medical Decision Making MDM Narrative: 63 yo female with PMH of HLD, HTN, asthma, IDDM, recent [address] s/p hydrocephalus with drainage per and seizures now on diamox 250mg daily and keppra 500mg BID here with c/o hyperglycemia at home - yesterday prescribed what she was taking CT now family states that it is wrong. Will need to touch base with them. She was also drinking OJ yesterday while we were trying to get her blood sugar down so there is an education issue. They declined inpatient services or help as well and wanted to take her home yesterday. Differential Diagnosis Differential Diagnoses: The differential diagnosis associated with the presentation includes poor diet compliance, lack of medications, insulin resistance Admission/Observation Consideration of admission/observation: Escalation of care including admission/observation considered blood sugar improved stable for DC start on 8 units at lunch will go over it with marketing research intern Consult Healthcare Provider Management of the patient was discussed with: [facility] Scout Lab Data MDM Lab Attestation statement: I reviewed the patient's lab results. 09/21/23 19:35 09/21/23 19:35 Labs: Lab Results 09/21/23 09/21/23 Range/Units 18:58 19:35 WBC 5.6 (4.8-10.8) X10*3/uL RBC 4.61 (4.20-5.50) X10*6/uL Hgb 12.9 (12.0-16.0) g/dl Hct 38.1 (37.0-47.0) % MCV 82.6 (80.0-98.0) fL MCH 28.0 (27.0-33.0) pg MCHC 33.9 (31.0-35.0) g/dl RDW 14.6 (11.0-16.0) % Plt Count 239 (160-400) X10*3/uL MPV 10.7 (9.4-12.3) fL Immature Gran % (Auto) 0.2 (0.0-0.4) % Neut % (Auto) 61.8 (45-73) % Lymph % (Auto) 28.7 (20-40) % [place] % (Auto) 6.6 (2-11) % Eos % (Auto) 2.0 (0-4) % Baso % (Auto) 0.7 (0-2) % Lymph # (Auto) 1.6 (1.2-4.9) X10*3/uL [place] # (Auto) 0.4 (0.1-1.2) X10*3/uL Eos # (Auto) 0.1 (0.0-0.4) X10*3/uL Baso # (Auto) 0.0 (0.0-0.2) X10*3/uL Abs Immat Gran (auto) 0.01 (0.00-0.03) X10*3/uL Absolute Neuts (auto) 3.4 (2.0-8.3) x10*3/uL Absolute Nucleated RBC 0.000 (0.0-0.012) X10*3/uL Nucleated RBC % (auto) 0.0 (0.0-0.2) /100WBC Sodium 139 (135-145) mmol/L Potassium 3.7 (3.3-5.1) mmol/L Chloride 110 H (96-108) mmol/L Carbon Dioxide 21 L (22-29) mmol/L Anion Gap 12 (12-20) BUN 27 H (9-16) mg/dL Creatinine 1.43 H (0.5-1.4) mg/dL Estim Creat Clear Calc 35.4 Estimated GFR 37 POC Glucose 355 H* (60-115) mg/dL Random Glucose 308 H (60-115) mg/dL Calcium 9.5 (8.4-10.2) mg/dL Magnesium 2.1 (1.6-2.6) mg/dL Total Bilirubin 0.3 (0.0-1.0) mg/dL Direct Bilirubin 0.1 (0.0-0.5) mg/dL AST 13 (5-31) U/L ALT 20 (0-31) U/L Alkaline Phosphatase 125 H (39-117) U/L Total Protein 7.4 (6.5-8.0) g/dL Albumin 4.0 (3.5-5.0) g/dL Lipase 89 H (8-78) U/L Independent Historian Clinical information obtained from an independent historian. History obtained from or confirmed by: Spouse and EMS External Record Review External record reviewed: Inpatient record Prescription Management I considered prescription management with: Other Discharge Plan Discharge Clinical Impression: Acute hyperglycemia Patient Disposition: Home, Self-Care Instructions: Diabetic Hyperglycemia (ED), Diabetes and Nutrition (ED) Additional Instructions: call primary care doctor on sunday take 8 units of lispro at breakfast and at lunch time Prescriptions: No Action meclizine 12.5 mg tablet 12.5 mg PO TID PRN (Reason: dizziness) Qty: 20 0RF lorazepam [Ativan] 1 mg tablet 1 mg PO BEDTIME PRN (Reason: sleep) Qty: 5 0RF levetiracetam [Keppra] 500 mg tablet 500 mg PO BID Qty: 60 1RF acetazolamide 250 mg tablet 250 mg PO DAILY Qty: 30 0RF atorvastatin 40 mg tablet 40 mg PO DAILY Qty: 30 1RF docusate sodium [Colace] 100 mg capsule 100 mg PO BID PRN (Reason: constipation) Qty: 60 1RF insulin glargine [Lantus Solostar U-100 Insulin] 100 unit/mL (3 mL) insulin pen 35 unit subcut QPM Qty: 15 1RF insulin lispro 100 unit/mL insulin pen 8 unit subcut QAM Qty: 15 1RF cefuroxime axetil 250 mg tablet 250 mg PO BID 7 Days Qty: 14 0RF Print Language: Greek
[2023-09-21 18:57] VITALS: BP 124/82; BP 143/89; PULSE 92; RESP 16; TEMP 36.8; O2SAT 100; O2SAT 95; BMI 25.8
[2023-09-21 19:02] LABS: Glucose, Whole Blood 355 mg/dL (60-115)
[2023-09-21] MEDS: Insulin Regular, Human 100 UNIT/ML 3 ML VIAL 7 UNIT IVPUSH (19:10)
[2023-09-21 19:39] LABS: MANUAL DIFF FLAG NO
[2023-09-21 19:40] LABS: Basophils Percent Auto 0.7 % (0-2); Eosinophils Absolute Auto 0.1 X10*3/uL (0.0-0.4); Hematocrit 38.1 % (37.0-47.0); Hemoglobin 12.9 g/dl (12.0-16.0); Imm Gran Abs Auto 0.01 X10*3/uL (0.00-0.03); Imm Gran Pct Auto 0.2 % (0.0-0.4); Lymphocytes Absolute Auto 1.6 X10*3/uL (1.2-4.9); Lymphocytes Percent Auto 28.7 % (20-40); Mean Corpuscular HGB Conc 33.9 g/dl (31.0-35.0); Mean Corpuscular Volume 82.6 fL (80.0-98.0); Mean Platelet Volume 10.7 fL (9.4-12.3); Monocytes Absolute Auto 0.4 X10*3/uL (0.1-1.2); Monocytes Percent Auto 6.6 % (2-11); Neutrophils Absolute Auto 3.4 x10*3/uL (2.0-8.3); Neutrophils Percent Auto 61.8 % (45-73); Platelet Count 239 X10*3/uL (160-400); Red Blood Count 4.61 X10*6/uL (4.20-5.50); Red Cell Distribution Width 14.6 % (11.0-16.0); White Blood Count 5.6 X10*3/uL (4.8-10.8)
[2023-09-21 19:56] LABS: Alanine Aminotransferase 20 U/L (0-31); Alkaline Phosphatase 125 U/L (39-117); Anion Gap 12 (12-20); Aspartate Amino Transferase 13 U/L (5-31); Bilirubin Direct 0.1 mg/dL (0.0-0.5); Bilirubin Total 0.3 mg/dL (0.0-1.0); Blood Urea Nitrogen 27 mg/dL (9-16); Calcium 9.5 mg/dL (8.4-10.2); Carbon Dioxide 21 mmol/L (22-29); Chloride 110 mmol/L (96-108); Creatinine Clr Calc Pharmacy 35.4; Estimated Glomerular Filt Rate 37; Glucose Random 308 mg/dL (60-115); Lipase 89 U/L (8-78); Magnesium 2.1 mg/dL (1.6-2.6); Potassium 3.7 mmol/L (3.3-5.1); Sodium 139 mmol/L (135-145); Total Protein 7.4 g/dL (6.5-8.0)
[2023-09-21] MEDS: 0.9 % Sodium Chloride 1,000 ML 999 ML IV (20:10)
[2023-09-21 22:42] VITALS: BP 129/79; PULSE 86; RESP 16; TEMP 36.8; O2SAT 99
[2023-09-21 22:46] LABS: Glucose, Whole Blood 249 mg/dL (60-115)
[2023-09-21 22:55] VITALS: BP 129/79; PULSE 86; RESP 16; TEMP 36.8; O2SAT 99
== END 2023-09-21 22:55 | disposition home or self-care (01) ==
PROVIDERS: Emergency Provider Emergency Medicine
DX: E11.65 Type 2 diabetes mellitus with hyperglycemia (principal); R56.9 Unspecified convulsions; I10 Essential (primary) hypertension; J45.909 Unspecified asthma, uncomplicated; Z79.4 Long term (current) use of insulin; Z79.899 Other long term (current) drug therapy
CPT/HCPCS: 36415; 80048; 80076; 82947; 83690; 83735; 85025; 96361; 96374; 99284